=== PATIENT | male | born 1975 | race Native Hawaiian/Other Pacific Islander ===

== ENCOUNTER 2020-05-11 07:07 | Emergency (ER) | payer OTHER ==
[~2020-05-11] VITALS: Ht 175.3 cm; Wt 69.9 kg
[2020-05-11 07:48] LABS: PLATELET COUNT 259 K/uL (142-355)
[2020-05-11 07:57] LABS: PARTIAL THROMBOPLASTIN TIME 26.3 SECONDS (24.5-33.6)
[2020-05-11 09:37] VITALS: BP 180/80; TEMP 97.9
== END 2020-05-11 09:37 | disposition home or self-care (01) ==
LOC: ED 07:07
PROVIDERS: Hospitalist
DX: K40.90 Unilateral inguinal hernia, without obstruction or gangrene, not specified as recurrent (principal); N45.1 Epididymitis; N43.2 Other hydrocele
CPT/HCPCS: 36591; 80048; 81000; 85027; 85610; 85730; 96374; 96375; 99284; J1885; J2270; J2405